=== PATIENT | female | born 1945 | race Caucasian/White ===

== ENCOUNTER → 2017-01-16 | Outpatient (CLI) | payer OTHER | END | disposition home or self-care (01) | LOC: MAMMO 14:00 | DX: Z12.31 Encounter for screening mammogram for malignant neoplasm of breast (principal) ==

== ENCOUNTER → 2017-04-03 | Outpatient (CLI) | payer OTHER ==
[2017-04-03 16:03] LABS: BASO # 0.1 10*3/uL (0.0-0.1); BASO % 0.5 % (0.0-1.0); EOS # 0.3 10*3/uL (0.0-0.4); EOS % 2.7 % (1.0-4.0); HEMATOCRIT 36.7 % (37.0-47.0); HEMOGLOBIN 11.3 g/dl (12.0-16.0); IG # 0.1 10*3/uL (0.0-0.1); LYMPH # 2.5 10*3/uL (1.3-4.4); LYMPH % 24.9 % (27.0-41.0); MEAN CELL VOLUME 91.1 fl (81.0-99.0); MEAN CORPUSCULAR HGB CONC 30.8 g/dl (33.0-37.0); MEAN PLATELET VOLUME 11.3 fl (9.6-12.3); MONO # 0.5 10*3/uL (0.1-1.0); MONO % 5.1 % (3.0-9.0); NEUT # 6.6 10*3/uL (2.3-7.9); NEUT % 66.2 % (47.0-73.0); PLATELET COUNT AUTOMATED 280 10*3/uL (130-400); RED BLOOD COUNT 4.03 10*6/uL (4.10-5.10); RED CELL DISTRI WIDTH 15.1 % (0-14.5); WHITE BLOOD COUNT 9.9 10*3/uL (4.8-10.8)
[2017-04-03 16:11] LABS: POTASSIUM 4.6 mmol/L (3.5-5.1)
[2017-04-03 16:19] LABS: HEMOGLOBIN A1c 6.7 % (4.8-5.6)
[2017-04-03 16:22] LABS: THYROID STIM HORMONE (HS) 12.5 uIU/ml (0.358-4.75)
[2017-04-04 09:07] LABS: MICRO ALBUMIN/CRE RATIO <2.2 (0.0-30.0)
== END | disposition home or self-care (01) ==
LOC: LAB 14:53
PROVIDERS: Family Medicine
DX: E03.9 Hypothyroidism, unspecified (principal); E78.00 Pure hypercholesterolemia, unspecified; D64.9 Anemia, unspecified; E11.9 Type 2 diabetes mellitus without complications

== ENCOUNTER → 2019-09-10 | Outpatient (CLI) | payer OTHER ==
[2019-09-10 14:05] LABS: BASO # 0.1 10*3/uL (0.0-0.1); BASO % 0.7 % (0.0-1.0); EOS # 0.3 10*3/uL (0.0-0.4); EOS % 3.1 % (1.0-4.0); HEMATOCRIT 36.7 % (37.0-47.0); HEMOGLOBIN 11.6 g/dl (12.0-16.0); LYMPH # 3.3 10*3/uL (1.3-4.4); LYMPH % 33.8 % (27.0-41.0); MEAN CELL VOLUME 95.8 fl (81.0-99.0); MEAN CORPUSCULAR HGB 30.3 pg (27.0-31.0); MEAN CORPUSCULAR HGB CONC 31.6 g/dl (33.0-37.0); MEAN PLATELET VOLUME 11.2 fl (9.6-12.3); MONO # 0.6 10*3/uL (0.1-1.0); MONO % 5.9 % (3.0-9.0); NEUT # 5.5 10*3/uL (2.3-7.9); NEUT % 55.9 % (47.0-73.0); PLATELET COUNT AUTOMATED 277 10*3/uL (130-400); RED BLOOD COUNT 3.83 10*6/uL (4.10-5.10); RED CELL DISTRI WIDTH 13.3 % (0-14.5); WHITE BLOOD COUNT 9.9 10*3/uL (4.8-10.8)
[2019-09-10 14:22] LABS: ALBUMIN 3.2 gm/dl (3.1-4.5); CREATININE 1.3 mg/dL (0.55-1.02); POTASSIUM 4.2 mmol/L (3.5-5.1); TOTAL PROTEIN 8.6 gm/dL (6.4-8.2)
[2019-09-10 14:36] LABS: THYROID STIM HORMONE (HS) 0.625 uIU/ml (0.358-4.75)
== END | disposition home or self-care (01) ==
LOC: LAB 13:32
PROVIDERS: Family Medicine
DX: E11.9 Type 2 diabetes mellitus without complications (principal); E78.2 Mixed hyperlipidemia; E03.9 Hypothyroidism, unspecified; R42 Dizziness and giddiness

== ENCOUNTER → 2019-12-10 | Outpatient (CLI) | payer OTHER | END | disposition home or self-care (01) | LOC: RAD 15:47 | DX: J44.9 Chronic obstructive pulmonary disease, unspecified (principal) ==

== ENCOUNTER 2019-12-18 23:55 | Emergency (ER) | payer OTHER | END 2019-12-18 23:59 | disposition left against medical advice (07) | LOC: ED 23:55 | DX: R07.9 Chest pain, unspecified (principal); Z53.21 Procedure and treatment not carried out due to patient leaving prior to being seen by health care provider ==

== ENCOUNTER → 2020-06-29 | Outpatient (CLI) | payer OTHER ==
[2020-06-29 15:03] LABS: BASO # 0.1 10*3/uL (0.0-0.1); BASO % 0.4 % (0.0-1.0); EOS # 0.4 10*3/uL (0.0-0.4); EOS % 3.8 % (1.0-4.0); LYMPH # 4.4 10*3/uL (1.3-4.4); LYMPH % 38.2 % (27.0-41.0); MEAN CORPUSCULAR HGB 28.9 pg (27.0-31.0); MEAN CORPUSCULAR HGB CONC 30.8 g/dl (33.0-37.0); MEAN PLATELET VOLUME 10.9 fl (9.6-12.3); MONO # 0.7 10*3/uL (0.1-1.0); MONO % 6.5 % (3.0-9.0); NEUT # 5.8 10*3/uL (2.3-7.9); NEUT % 50.8 % (47.0-73.0); PLATELET COUNT AUTOMATED 265 10*3/uL (130-400); RED BLOOD COUNT 4.15 10*6/uL (4.10-5.10); RED CELL DISTRI WIDTH 13.9 % (0-14.5); WHITE BLOOD COUNT 11.4 10*3/uL (4.8-10.8)
[2020-06-29 15:37] LABS: CREATININE 1.23 mg/dL (0.55-1.02); POTASSIUM 4.1 mmol/L (3.5-5.1)
[2020-06-29 15:43] LABS: THYROID STIM HORMONE (HS) 0.46 uIU/ml (0.358-4.75)
== END | disposition home or self-care (01) ==
LOC: LAB 14:46
PROVIDERS: ATTEND Family Medicine
DX: D50.0 Iron deficiency anemia secondary to blood loss (chronic) (principal); E11.9 Type 2 diabetes mellitus without complications; E03.9 Hypothyroidism, unspecified; E78.2 Mixed hyperlipidemia

== ENCOUNTER → 2021-05-04 | Outpatient (CLI) | payer OTHER ==
[2021-05-04 14:25] LABS: CREATININE 1.26 mg/dL (0.55-1.02); POTASSIUM 4.1 mmol/L (3.5-5.1)
[2021-05-04 14:35] LABS: THYROID STIM HORMONE (HS) 28.8 uIU/ml (0.358-4.75)
== END | disposition home or self-care (01) ==
LOC: LAB 13:19
PROVIDERS: ATTEND Family Medicine
DX: I10 Essential (primary) hypertension (principal); E11.9 Type 2 diabetes mellitus without complications

== ENCOUNTER → 2021-07-07 | Outpatient (CLI) | payer OTHER ==
[2021-07-07 15:49] LABS: BASO # 0.1 10*3/uL (0.0-0.1); BASO % 0.5 % (0.0-1.0); EOS # 0.2 10*3/uL (0.0-0.4); EOS % 2.3 % (1.0-4.0); HEMATOCRIT 39.3 % (37.0-47.0); LYMPH # 3.8 10*3/uL (1.3-4.4); LYMPH % 41.9 % (27.0-41.0); MEAN CORPUSCULAR HGB 30.5 pg (27.0-31.0); MEAN CORPUSCULAR HGB CONC 30.8 g/dl (33.0-37.0); MEAN PLATELET VOLUME 11.1 fl (9.6-12.3); MONO # 0.6 10*3/uL (0.1-1.0); MONO % 6.7 % (3.0-9.0); NEUT # 4.4 10*3/uL (2.3-7.9); NEUT % 48.2 % (47.0-73.0); PLATELET COUNT AUTOMATED 236 10*3/uL (130-400); RED BLOOD COUNT 3.97 10*6/uL (4.10-5.10); RED CELL DISTRI WIDTH 13.4 % (0-14.5); WHITE BLOOD COUNT 9.1 10*3/uL (4.8-10.8)
== END | disposition home or self-care (01) ==
LOC: LAB 15:25
PROVIDERS: ATTEND Family Medicine
DX: E03.9 Hypothyroidism, unspecified (principal); R53.81 Other malaise

== ENCOUNTER → 2022-03-30 | Outpatient (CLI) | payer OTHER ==
[2022-03-30 15:23] LABS: CREATININE 1.24 mg/dL (0.55-1.02); POTASSIUM 4.2 mmol/L (3.5-5.1)
[2022-03-30 15:28] LABS: THYROID STIM HORMONE (HS) 2.35 uIU/ml (0.358-4.75)
== END | disposition home or self-care (01) ==
LOC: LAB 14:24
PROVIDERS: ATTEND Family Medicine
DX: E11.9 Type 2 diabetes mellitus without complications (principal); I10 Essential (primary) hypertension

== ENCOUNTER → 2023-02-22 | Outpatient (CLI) | payer OTHER ==
[2023-02-22 16:23] LABS: BASO # 0.1 10*3/uL (0.0-0.1); BASO % 0.5 % (0.0-1.0); EOS # 0.3 10*3/uL (0.0-0.4); EOS % 3.3 % (1.0-4.0); LYMPH # 3.3 10*3/uL (1.3-4.4); LYMPH % 33.5 % (27.0-41.0); MEAN CELL VOLUME 97.4 fl (81.0-99.0); MEAN CORPUSCULAR HGB 30.3 pg (27.0-31.0); MEAN CORPUSCULAR HGB CONC 31.1 g/dl (33.0-37.0); MEAN PLATELET VOLUME 10.9 fl (9.6-12.3); MONO # 0.6 10*3/uL (0.1-1.0); MONO % 6.5 % (3.0-9.0); NEUT # 5.5 10*3/uL (2.3-7.9); NEUT % 55.9 % (47.0-73.0); PLATELET COUNT AUTOMATED 240 10*3/uL (130-400); RED CELL DISTRI WIDTH 13.5 % (0-14.5); WHITE BLOOD COUNT 9.8 10*3/uL (4.8-10.8)
[2023-02-22 17:08] LABS: ALKALINE PHOSPHATASE 71 U/L (46-116); BUN 16 mg/dl (9-23); CHLORIDE 104 mmol/L (98-107); CHOLESTEROL 96 mg/dL (<200); LDL CHOLESTEROL 39 mg/dL (9-159); POTASSIUM 4.4 mmol/L (3.4-5.1); THYROID STIM HORMONE (HS) 3.786 uIU/ml (0.550-4.780); TOTAL PROTEIN 8.1 gm/dL (6.0-8.0); TRIGLYCERIDES 93 mg/dl (<150)
[2023-02-22 17:13] LABS: SGPT/ALT < 7 U/L (10-49)
== END | disposition home or self-care (01) ==
LOC: LAB 15:50
PROVIDERS: ATTEND Family Medicine
DX: E11.9 Type 2 diabetes mellitus without complications (principal); E78.2 Mixed hyperlipidemia; E03.9 Hypothyroidism, unspecified; K74.69 Other cirrhosis of liver

== ENCOUNTER 2023-08-02 01:10 | Inpatient (IN) | payer OTHER ==
[2023-08-02] VITALS (13 sets, daily range): BP systolic 105–155; BP diastolic 42–64
[~2023-08-02] VITALS: Ht 162.6 cm; Wt 99.5 kg
[2023-08-02 01:53] LABS: BASO # 0.1 10*3/uL (0.0-0.1); BASO % 0.3 % (0.0-1.0); EOS % 0.2 % (1.0-4.0); HEMATOCRIT 38.7 % (37.0-47.0); LYMPH % 11.2 % (27.0-41.0); MEAN CORPUSCULAR HGB 30.1 pg (27.0-31.0); MONO # 1.3 10*3/uL (0.1-1.0); MONO % 7.2 % (3.0-9.0); NEUT # 14.4 10*3/uL (2.3-7.9); NEUT % 80.3 % (47.0-73.0); PLATELET COUNT AUTOMATED 218 10*3/uL (130-400); RED BLOOD COUNT 3.99 10*6/uL (4.10-5.10); RED CELL DISTRI WIDTH 13.5 % (0-14.5)
[2023-08-02 02:05] LABS: ACT PARTIAL THROMBO TIME 21.1 SECONDS (20.0-32.1); INTERNATIONAL NORM RATIO 0.9 (2.0-3.5)
[2023-08-02 02:15] LABS: POTASSIUM 4.7 mmol/L (3.4-5.1); TOTAL PROTEIN 8.1 gm/dL (6.0-8.0)
[2023-08-02] MEDS ORDERED: PERCOCET 7.5-31 EACH PO (02:56)
[2023-08-02] MEDS ORDERED: ROSUVASTATIN CA10 MG PO (02:57)
[2023-08-02] MEDS ORDERED: XANAX0.5 MG PO (02:58)
[2023-08-02] MEDS ORDERED: SYMB160 INH (02:58)
[2023-08-02] MEDS ORDERED: LEVOTHYROXINE175 MCG PO (02:58)
[2023-08-02 04:00] LABS: BILIRUBIN Negative (Negative); BLOOD Trace-Intact (Negative); CLARITY Clear (Clear); COLOR Yellow (Yellow); GLUCOSE Negative (Negative); KETONE Trace (Negative); LEUKO ESTERASE Trace (Negative); NITRITE Positive (Negative); UROBILINOGEN 0.2 E.U./dl (0.0-1.0)
[2023-08-02 04:20] LABS: BACTERIA 2+; EPITHELIAL CELLS 16-20
[2023-08-02 14:21] LABS: ABG BASE EXCESS -2.8 mmol/L (-2.0-2.0); ARTERIAL BLOOD GAS PH 7.323 (7.35-7.45); ARTERIAL BLOOD GAS PO2 64.5 (80-90)
[2023-08-02] MEDS ORDERED: COQ-10100 MG PO (14:56)
[2023-08-02] MEDS ORDERED: TUMERIC PO (14:57)
[2023-08-02 16:04] LABS: BASO % 0.2 % (0.0-1.0); EOS % 0.1 % (1.0-4.0); HEMATOCRIT 34.4 % (37.0-47.0); LYMPH # 1.5 10*3/uL (1.3-4.4); LYMPH % 9.5 % (27.0-41.0); MEAN CELL VOLUME 96.6 fl (81.0-99.0); MEAN CORPUSCULAR HGB 30.9 pg (27.0-31.0); MONO # 0.8 10*3/uL (0.1-1.0); MONO % 5.4 % (3.0-9.0); NEUT # 13.2 10*3/uL (2.3-7.9); NEUT % 84.3 % (47.0-73.0); PLATELET COUNT AUTOMATED 180 10*3/uL (130-400); RED BLOOD COUNT 3.56 10*6/uL (4.10-5.10); RED CELL DISTRI WIDTH 13.6 % (0-14.5); WHITE BLOOD COUNT 15.6 10*3/uL (4.8-10.8)
[2023-08-02 16:27] LABS: POTASSIUM 5.2 mmol/L (3.4-5.1); TOTAL PROTEIN 7.3 gm/dL (6.0-8.0)
[2023-08-03] VITALS: BP 106/41
[2023-08-03 04:00] VITALS: BP 111/48
[2023-08-03 06:41] LABS: BASO % 0.2 % (0.0-1.0); EOS # 0.1 10*3/uL (0.0-0.4); EOS % 0.8 % (1.0-4.0); HEMATOCRIT 31.4 % (37.0-47.0); LYMPH # 2.3 10*3/uL (1.3-4.4); LYMPH % 18.9 % (27.0-41.0); MEAN CORPUSCULAR HGB 31.1 pg (27.0-31.0); MEAN CORPUSCULAR HGB CONC 31.2 g/dl (33.0-37.0); MEAN PLATELET VOLUME 11.3 fl (9.6-12.3); MONO # 0.7 10*3/uL (0.1-1.0); MONO % 5.6 % (3.0-9.0); NEUT % 73.8 % (47.0-73.0); PLATELET COUNT AUTOMATED 157 10*3/uL (130-400); RED BLOOD COUNT 3.15 10*6/uL (4.10-5.10); RED CELL DISTRI WIDTH 13.8 % (0-14.5); WHITE BLOOD COUNT 12.2 10*3/uL (4.8-10.8)
[2023-08-03 06:53] LABS: MEAN CELL VOLUME 99.7 fl (81.0-99.0)
[2023-08-03 07:04] LABS: POTASSIUM 4.7 mmol/L (3.4-5.1); TOTAL PROTEIN 7.1 gm/dL (6.0-8.0)
[2023-08-03 08:00] VITALS: BP 105/53
[2023-08-03 12:00] VITALS: BP 102/40
[2023-08-03 16:00] VITALS: BP 117/51
[2023-08-03 20:00] VITALS: BP 110/50
[2023-08-04] VITALS: BP 122/44
[2023-08-04 07:09] LABS: POTASSIUM 4.7 mmol/L (3.4-5.1); TOTAL PROTEIN 7.1 gm/dL (6.0-8.0)
[2023-08-04 07:40] LABS: BASO % 0.4 % (0.0-1.0); EOS # 0.1 10*3/uL (0.0-0.4); EOS % 1.1 % (1.0-4.0); HEMATOCRIT 28.3 % (37.0-47.0); LYMPH # 1.8 10*3/uL (1.3-4.4); LYMPH % 16.5 % (27.0-41.0); MEAN CELL VOLUME 97.6 fl (81.0-99.0); MEAN CORPUSCULAR HGB CONC 31.8 g/dl (33.0-37.0); MEAN PLATELET VOLUME 11.2 fl (9.6-12.3); MONO # 0.6 10*3/uL (0.1-1.0); NEUT % 75.2 % (47.0-73.0); PLATELET COUNT AUTOMATED 146 10*3/uL (130-400); RED CELL DISTRI WIDTH 13.4 % (0-14.5); WHITE BLOOD COUNT 10.7 10*3/uL (4.8-10.8)
[2023-08-04 08:00] VITALS: BP 118/54
[2023-08-04 12:00] VITALS: BP 109/52
[2023-08-04 16:00] VITALS: BP 108/60
[2023-08-04 20:00] VITALS: BP 106/52
[2023-08-05] VITALS: BP 145/69
[2023-08-05 06:51] LABS: BASO % 0.2 % (0.0-1.0); EOS # 0.3 10*3/uL (0.0-0.4); EOS % 2.2 % (1.0-4.0); HEMATOCRIT 27.3 % (37.0-47.0); LYMPH # 1.8 10*3/uL (1.3-4.4); MEAN CELL VOLUME 96.8 fl (81.0-99.0); MEAN CORPUSCULAR HGB 30.9 pg (27.0-31.0); MEAN CORPUSCULAR HGB CONC 31.9 g/dl (33.0-37.0); MEAN PLATELET VOLUME 11.3 fl (9.6-12.3); MONO # 0.8 10*3/uL (0.1-1.0); MONO % 6.7 % (3.0-9.0); NEUT # 8.4 10*3/uL (2.3-7.9); NEUT % 74.2 % (47.0-73.0); PLATELET COUNT AUTOMATED 171 10*3/uL (130-400); RED BLOOD COUNT 2.82 10*6/uL (4.10-5.10); RED CELL DISTRI WIDTH 13.3 % (0-14.5); WHITE BLOOD COUNT 11.3 10*3/uL (4.8-10.8)
[2023-08-05 07:11] LABS: BUN 24 mg/dl (9-23); CHLORIDE 101 mmol/L (98-107); POTASSIUM 4.5 mmol/L (3.4-5.1)
[2023-08-05 08:00] VITALS: BP 140/75
[2023-08-05 12:00] VITALS: BP 120/57
[2023-08-05 16:00] VITALS: BP 119/48
[2023-08-05 20:00] VITALS: BP 114/57
[2023-08-06] VITALS: BP 132/54
[2023-08-06 05:33] LABS: BUN 24 mg/dl (9-23); CHLORIDE 101 mmol/L (98-107); POTASSIUM 4.3 mmol/L (3.4-5.1)
[2023-08-06 06:27] LABS: BASO % 0.4 % (0.0-1.0); EOS # 0.4 10*3/uL (0.0-0.4); HEMATOCRIT 27.8 % (37.0-47.0); LYMPH % 20.9 % (27.0-41.0); MEAN CELL VOLUME 98.2 fl (81.0-99.0); MEAN CORPUSCULAR HGB 31.4 pg (27.0-31.0); MEAN PLATELET VOLUME 11.9 fl (9.6-12.3); MONO # 0.9 10*3/uL (0.1-1.0); MONO % 8.9 % (3.0-9.0); NEUT # 6.2 10*3/uL (2.3-7.9); NEUT % 65.1 % (47.0-73.0); PLATELET COUNT AUTOMATED 208 10*3/uL (130-400); RED BLOOD COUNT 2.83 10*6/uL (4.10-5.10); RED CELL DISTRI WIDTH 13.4 % (0-14.5); WHITE BLOOD COUNT 9.5 10*3/uL (4.8-10.8)
[2023-08-06 08:00] VITALS: BP 126/48
[2023-08-06 12:00] VITALS: BP 128/46
[2023-08-06 16:00] VITALS: BP 110/51
[2023-08-06 20:00] VITALS: BP 132/59
[2023-08-07] VITALS: BP 126/60
[2023-08-07 06:16] LABS: BUN 22 mg/dl (9-23); CHLORIDE 101 mmol/L (98-107); POTASSIUM 3.6 mmol/L (3.4-5.1)
[2023-08-07 06:20] LABS: BASO # 0.1 10*3/uL (0.0-0.1); BASO % 0.7 % (0.0-1.0); EOS # 0.5 10*3/uL (0.0-0.4); HEMATOCRIT 25.2 % (37.0-47.0); LYMPH # 2.6 10*3/uL (1.3-4.4); LYMPH % 28.5 % (27.0-41.0); MEAN CELL VOLUME 98.8 fl (81.0-99.0); MEAN CORPUSCULAR HGB 30.6 pg (27.0-31.0); MEAN PLATELET VOLUME 11.5 fl (9.6-12.3); MONO # 0.8 10*3/uL (0.1-1.0); MONO % 8.9 % (3.0-9.0); NEUT # 4.9 10*3/uL (2.3-7.9); NEUT % 55.3 % (47.0-73.0); NUCLEATED RED BLOOD CELL 0.4 % (0.0-0.0); PLATELET COUNT AUTOMATED 203 10*3/uL (130-400); RED BLOOD COUNT 2.55 10*6/uL (4.10-5.10); RED CELL DISTRI WIDTH 13.8 % (0-14.5); WHITE BLOOD COUNT 8.9 10*3/uL (4.8-10.8)
[2023-08-07 08:00] VITALS: BP 131/62
[2023-08-07 12:00] VITALS: BP 112/62
[2023-08-07 15:43] VITALS: BP 134/52
[2023-08-07 20:00] VITALS: BP 124/63
[2023-08-08] VITALS: BP 123/45
[2023-08-08 07:02] LABS: BASO # 0.1 10*3/uL (0.0-0.1); BASO % 0.6 % (0.0-1.0); EOS # 0.4 10*3/uL (0.0-0.4); EOS % 4.1 % (1.0-4.0); HEMATOCRIT 25.4 % (37.0-47.0); LYMPH # 2.5 10*3/uL (1.3-4.4); LYMPH % 26.8 % (27.0-41.0); MEAN CELL VOLUME 98.1 fl (81.0-99.0); MEAN CORPUSCULAR HGB 30.9 pg (27.0-31.0); MEAN CORPUSCULAR HGB CONC 31.5 g/dl (33.0-37.0); MONO # 0.7 10*3/uL (0.1-1.0); MONO % 7.7 % (3.0-9.0); NEUT # 5.5 10*3/uL (2.3-7.9); NEUT % 57.9 % (47.0-73.0); NUCLEATED RED BLOOD CELL 0.1 10*3/uL (0.0-0.0); NUCLEATED RED BLOOD CELL 0.8 % (0.0-0.0); PLATELET COUNT AUTOMATED 249 10*3/uL (130-400); RED BLOOD COUNT 2.59 10*6/uL (4.10-5.10); RED CELL DISTRI WIDTH 13.8 % (0-14.5); WHITE BLOOD COUNT 9.5 10*3/uL (4.8-10.8)
[2023-08-08 08:00] VITALS: BP 127/54
[2023-08-08] MEDS ORDERED: VENTOLIN 02.5 MG/3 M NEB (10:56)
[2023-08-08] MEDS ORDERED: VITAMIN D350 MCG PO (10:56)
[2023-08-08] MEDS ORDERED: PERCOCET 7.5-31 EACH PO (10:56)
[2023-08-08] MEDS ORDERED: ASPIRIN ADULT L81 M2 PO (10:56)
[2023-08-08] MEDS ORDERED: XANAX0.5 MG PO (10:56)
[2023-08-08 12:00] VITALS: BP 128/57
== END 2023-08-08 14:44 | DRG 853 ==
LOC: ED 01:10 → EDHOLD 04:33 → ICCU 04:33 → 4E 04:33 → EDHOLD 04:52 → ICCU 14:06 → 4E 08-06 11:00
PROVIDERS: Family Medicine; Internal Medicine; Orthopaedic Surgery; Registered Nurse; Student in an Organized Health Care Education/Training Program; ADMIT Student in an Organized Health Care Education/Training Program; ATTEND Student in an Organized Health Care Education/Training Program
PROC: 0QH634Z Insertion of Internal Fixation Device into Right Upper Femur, Percutaneous Approach (ICD-10-PCS; principal; 2023-08-02)
PROC: 3E0T3BZ Introduction of Anesthetic Agent into Peripheral Nerves and Plexi, Percutaneous Approach (ICD-10-PCS; 2023-08-02)
PROC: 5A09357 Assistance with Respiratory Ventilation, Less than 24 Consecutive Hours, Continuous Positive Airway Pressure (ICD-10-PCS; 2023-08-02)
PROC: 5A09457 Assistance with Respiratory Ventilation, 24-96 Consecutive Hours, Continuous Positive Airway Pressure (ICD-10-PCS; 2023-08-02)
DX: A41.9 Sepsis, unspecified organism (principal); J96.01 Acute respiratory failure with hypoxia; S72.141A Displaced intertrochanteric fracture of right femur, initial encounter for closed fracture; E87.20 Acidosis, unspecified; N39.0 Urinary tract infection, site not specified; E44.0 Moderate protein-calorie malnutrition; R65.20 Severe sepsis without septic shock; F41.9 Anxiety disorder, unspecified; N18.9 Chronic kidney disease, unspecified; E78.5 Hyperlipidemia, unspecified; E03.9 Hypothyroidism, unspecified; R73.9 Hyperglycemia, unspecified; J44.9 Chronic obstructive pulmonary disease, unspecified; K76.0 Fatty (change of) liver, not elsewhere classified; Z90.710 Acquired absence of both cervix and uterus; Z90.49 Acquired absence of other specified parts of digestive tract; Z98.51 Tubal ligation status; Z82.49 Family history of ischemic heart disease and other diseases of the circulatory system; Z82.3 Family history of stroke; W18.39XA Other fall on same level, initial encounter; Y93.89 Activity, other specified; Y92.89 Other specified places as the place of occurrence of the external cause; Y99.8 Other external cause status; Z68.37 Body mass index [BMI] 37.0-37.9, adult

== ENCOUNTER → 2023-08-31 | Outpatient (CLI) | payer OTHER ==
[~2023-08-31] MED LIST: ASPIRIN ADULT L81 M2 PO; COQ-10100 MG PO; LEVOTHYROXINE175 MCG PO; PERCOCET 7.5-31 EACH PO; ROSUVASTATIN CA10 MG PO; SYMB160 INH; TUMERIC PO; VENTOLIN 02.5 MG/3 M NEB; VITAMIN D350 MCG PO; XANAX0.5 MG PO
== END | disposition home or self-care (01) ==
LOC: ORTHO 00:45
PROVIDERS: ATTEND Orthopaedic Surgery
DX: S72.141D Displaced intertrochanteric fracture of right femur, subsequent encounter for closed fracture with routine healing (principal); X58.XXXD Exposure to other specified factors, subsequent encounter

== ENCOUNTER 2024-01-04 04:20 | Emergency (ER) | payer OTHER ==
[~2024-01-04] VITALS: Ht 165.1 cm; Wt 96.2 kg
[2024-01-04] MEDS ORDERED: IOHEXOL 300 MG/ML 100 ML VIAL IV ONE (04:50)
[2024-01-04 05:21] LABS: BUN 15 mg/dl (9-23); CHLORIDE 105 mmol/L (98-107); LIPASE 34 U/L (12-53); POTASSIUM 4.7 mmol/L (3.4-5.1)
[2024-01-04 05:58] LABS: BASO % 0.4 % (0.0-1.0); EOS # 0.3 10*3/uL (0.0-0.4); EOS % 2.9 % (1.0-4.0); HEMATOCRIT 34.2 % (37.0-47.0); LYMPH # 3.3 10*3/uL (1.3-4.4); LYMPH % 32.1 % (27.0-41.0); MEAN CELL VOLUME 98.3 fl (81.0-99.0); MEAN CORPUSCULAR HGB 29.3 pg (27.0-31.0); MEAN CORPUSCULAR HGB CONC 29.8 g/dl (33.0-37.0); MEAN PLATELET VOLUME 11.6 fl (9.6-12.3); MONO # 0.6 10*3/uL (0.1-1.0); MONO % 5.4 % (3.0-9.0); PLATELET COUNT AUTOMATED 196 10*3/uL (130-400); RED BLOOD COUNT 3.48 10*6/uL (4.10-5.10); RED CELL DISTRI WIDTH 16.6 % (0-14.5); WHITE BLOOD COUNT 10.3 10*3/uL (4.8-10.8)
[2024-01-04] MEDS ORDERED: SODIUM CHLORIDE 0.9% 1,000 ML IV ONE (06:25)
[2024-01-04] MEDS ORDERED: Acetaminophen/Oxycodone 5 MG/325 MG TABLET PO ONE (07:45)
[2024-01-04] MEDS ORDERED: Ondansetron Hydrochloride 4 MG/2 ML VIAL IV ONE (07:45)
[2024-01-04 08:21] LABS: BILIRUBIN Negative (Negative); BLOOD Negative (Negative); CLARITY Clear (Clear); COLOR Yellow (Yellow); GLUCOSE Negative (Negative); KETONE Negative (Negative); LEUKO ESTERASE 2+ (Negative); NITRITE Positive (Negative); PH 6.5 (4.5-8.0); SPECIFIC GRAVITY 1.025 (1.001-1.030); UROBILINOGEN 0.2 E.U./dl (0.0-1.0)
[2024-01-04 08:31] LABS: BACTERIA 4+; EPITHELIAL CELLS 0-2; WBC 41-50 wbc/hpf (0-5)
[2024-01-04] MEDS ORDERED: Ceftriaxone Sodium 1 GM/10 ML SYR IV ONE (08:35)
[2024-01-04] MEDS ORDERED: COLACE 2-IN-11 EACH PO (08:50)
[2024-01-04] MEDS ORDERED: PEPCID20 MG PO (08:50)
[2024-01-04] MEDS ORDERED: SEPTDS PO (08:50)
== END 2024-01-04 08:53 | disposition home or self-care (01) ==
LOC: ED 04:20
PROVIDERS: Internal Medicine
DX: K21.9 Gastro-esophageal reflux disease without esophagitis (principal); K44.9 Diaphragmatic hernia without obstruction or gangrene; N39.0 Urinary tract infection, site not specified; R11.0 Nausea; E11.9 Type 2 diabetes mellitus without complications; J44.9 Chronic obstructive pulmonary disease, unspecified; E03.9 Hypothyroidism, unspecified; Z88.8 Allergy status to other drugs, medicaments and biological substances; Z90.710 Acquired absence of both cervix and uterus; Z90.49 Acquired absence of other specified parts of digestive tract; Z98.51 Tubal ligation status; Z98.890 Other specified postprocedural states

== ENCOUNTER 2024-05-17 04:19 | Emergency (ER) | payer OTHER ==
[~2024-05-17] VITALS: Ht 165.1 cm; Wt 99.8 kg
[~2024-05-17 04:19] MED LIST changes: +COLACE 2-IN-11 EACH PO; +PEPCID20 MG PO; +SEPTDS PO
[2024-05-17] MEDS ORDERED: ACETAMINOPHEN 325 MG TAB PO ONE (05:20)
[2024-05-17] MEDS ORDERED: PREDNISONE50 MG PO (06:14)
[2024-05-17] MEDS ORDERED: Dexamethasone Sodium Phospha 20 MG/5 ML VIAL IM ONE (06:15)
== END 2024-05-17 06:32 | disposition home or self-care (01) ==
LOC: ED 04:19
DX: M79.652 Pain in left thigh (principal); F41.9 Anxiety disorder, unspecified; E11.9 Type 2 diabetes mellitus without complications; E03.9 Hypothyroidism, unspecified; J44.9 Chronic obstructive pulmonary disease, unspecified; Z88.8 Allergy status to other drugs, medicaments and biological substances; Z98.51 Tubal ligation status; Z95.5 Presence of coronary angioplasty implant and graft; Z90.49 Acquired absence of other specified parts of digestive tract; Z90.710 Acquired absence of both cervix and uterus

== ENCOUNTER 2024-06-06 11:05 | Emergency (ER) | payer OTHER ==
[~2024-06-06] VITALS: Wt 93.9 kg
[~2024-06-06 11:05] MED LIST changes: +PREDNISONE50 MG PO
[2024-06-06] MEDS ORDERED: ACETAMINOPHEN 325 MG TAB PO ONE (12:50)
[2024-06-06] MEDS ORDERED: OXYCODONE HCL (IR) 5 MG TAB PO ONE (12:55)
[2024-06-06 13:09] LABS: BASO % 0.4 % (0.0-1.0); EOS # 0.2 10*3/uL (0.0-0.4); EOS % 2.5 % (1.0-4.0); HEMATOCRIT 35.6 % (37.0-47.0); LYMPH # 2.6 10*3/uL (1.3-4.4); LYMPH % 33.3 % (27.0-41.0); MEAN CORPUSCULAR HGB 30.7 pg (27.0-31.0); MEAN PLATELET VOLUME 10.2 fl (9.6-12.3); MONO # 0.5 10*3/uL (0.1-1.0); MONO % 5.8 % (3.0-9.0); NEUT # 4.5 10*3/uL (2.3-7.9); NEUT % 57.6 % (47.0-73.0); PLATELET COUNT AUTOMATED 219 10*3/uL (130-400); RED BLOOD COUNT 3.71 10*6/uL (4.10-5.10); RED CELL DISTRI WIDTH 15.1 % (0-14.5); WHITE BLOOD COUNT 7.8 10*3/uL (4.8-10.8)
[2024-06-06 13:20] LABS: ACT PARTIAL THROMBO TIME 26.5 SECONDS (20.0-32.1)
[2024-06-06 13:43] LABS: ALKALINE PHOSPHATASE 87 U/L (46-116); BUN 10 mg/dl (9-23); CHLORIDE 104 mmol/L (98-107); POTASSIUM 4.2 mmol/L (3.4-5.1); SGPT/ALT < 7 U/L (5-49); TOTAL PROTEIN 7.8 gm/dL (6.0-8.0)
== END 2024-06-06 16:27 | disposition home or self-care (01) ==
LOC: ED 11:05
PROVIDERS: Emergency Medicine
DX: R60.0 Localized edema (principal); M79.652 Pain in left thigh; F41.9 Anxiety disorder, unspecified; J44.9 Chronic obstructive pulmonary disease, unspecified; K21.9 Gastro-esophageal reflux disease without esophagitis; E78.5 Hyperlipidemia, unspecified; E03.9 Hypothyroidism, unspecified; E11.22 Type 2 diabetes mellitus with diabetic chronic kidney disease; N18.6 End stage renal disease; Z88.8 Allergy status to other drugs, medicaments and biological substances; Z98.51 Tubal ligation status; Z95.5 Presence of coronary angioplasty implant and graft; Z90.49 Acquired absence of other specified parts of digestive tract; Z90.710 Acquired absence of both cervix and uterus

== ENCOUNTER → 2024-07-25 | Outpatient (CLI) | payer OTHER ==
[2024-07-25 16:23] LABS: BASO # 0.1 10*3/uL (0.0-0.1); BASO % 0.7 % (0.0-1.0); EOS # 0.2 10*3/uL (0.0-0.4); EOS % 2.4 % (1.0-4.0); HEMATOCRIT 39.5 % (37.0-47.0); LYMPH # 3.1 10*3/uL (1.3-4.4); LYMPH % 34.2 % (27.0-41.0); MEAN CELL VOLUME 100.8 fl (81.0-99.0); MEAN CORPUSCULAR HGB 30.6 pg (27.0-31.0); MEAN CORPUSCULAR HGB CONC 30.4 g/dl (33.0-37.0); MEAN PLATELET VOLUME 11.5 fl (9.6-12.3); MONO # 0.5 10*3/uL (0.1-1.0); MONO % 6.1 % (3.0-9.0); NEUT % 56.3 % (47.0-73.0); PLATELET COUNT AUTOMATED 259 10*3/uL (130-400); RED BLOOD COUNT 3.92 10*6/uL (4.10-5.10); RED CELL DISTRI WIDTH 15.1 % (0-14.5); WHITE BLOOD COUNT 8.9 10*3/uL (4.8-10.8)
[2024-07-25 16:49] LABS: ALKALINE PHOSPHATASE 83 U/L (46-116); BUN 17 mg/dl (9-23); CHLORIDE 105 mmol/L (98-107); CHOLESTEROL 154 mg/dL (<200); LDL CHOLESTEROL 75 mg/dL (9-159); POTASSIUM 4.7 mmol/L (3.4-5.1); T3 UPTAKE 30.9 % (22.4-36.7); THYROXINE (T4) TOTAL 9.6 ug/dl (4.5-10.9); TOTAL PROTEIN 8.3 gm/dL (6.0-8.0); TRIGLYCERIDES 226 mg/dl (<150); URIC ACID 5.8 mg/dL (3.1-7.8)
[2024-07-25 16:51] LABS: SGPT/ALT < 7 U/L (5-49)
[2024-07-26 10:07] LABS: ANTI-STREPTOLYSIN O AB 70.1 IU/mL (0.0-200.0)
== END | disposition home or self-care (01) ==
LOC: LAB 14:46
PROVIDERS: ATTEND Internal Medicine
DX: S70.02XA Contusion of left hip, initial encounter (principal); S70.12XA Contusion of left thigh, initial encounter; R53.83 Other fatigue; R06.00 Dyspnea, unspecified; R60.9 Edema, unspecified; M79.639 Pain in unspecified forearm; E78.5 Hyperlipidemia, unspecified; X58.XXXA Exposure to other specified factors, initial encounter; Y93.89 Activity, other specified; Y92.89 Other specified places as the place of occurrence of the external cause; Y99.8 Other external cause status

== ENCOUNTER 2024-09-29 03:32 | Emergency (ER) | payer OTHER ==
[~2024-09-29] VITALS: Ht 162.5 cm; Wt 90.3 kg
[2024-09-29 03:50] LABS: BASO % 0.3 % (0.0-1.0); EOS # 0.2 10*3/uL (0.0-0.4); EOS % 1.5 % (1.0-4.0); HEMATOCRIT 31.5 % (37.0-47.0); MEAN CELL VOLUME 102.6 fl (81.0-99.0); MEAN CORPUSCULAR HGB 30.6 pg (27.0-31.0); MEAN CORPUSCULAR HGB CONC 29.8 g/dl (33.0-37.0); MEAN PLATELET VOLUME 10.4 fl (9.6-12.3); MONO # 0.7 10*3/uL (0.1-1.0); MONO % 5.5 % (3.0-9.0); NEUT # 8.9 10*3/uL (2.3-7.9); NEUT % 75.1 % (47.0-73.0); PLATELET COUNT AUTOMATED 240 10*3/uL (130-400); RED BLOOD COUNT 3.07 10*6/uL (4.10-5.10); RED CELL DISTRI WIDTH 14.1 % (0-14.5); WHITE BLOOD COUNT 11.8 10*3/uL (4.8-10.8)
[2024-09-29] MEDS ORDERED: Meclizine Hydrochloride 25 MG TAB PO ONE (03:50)
[2024-09-29 04:11] LABS: ALKALINE PHOSPHATASE 86 U/L (46-116); BUN 22 mg/dl (9-23); CHLORIDE 104 mmol/L (98-107); POTASSIUM 5.1 mmol/L (3.4-5.1); SGPT/ALT 13 U/L (5-49); TOTAL PROTEIN 7.4 gm/dL (6.0-8.0)
[2024-09-29] MEDS ORDERED: ANTIVERT25 M2 PO (07:09)
[2024-09-29] MEDS ORDERED: Acetaminophen/Oxycodone 5 MG/325 MG TABLET PO ONE (07:10)
== END 2024-09-29 07:27 | disposition home or self-care (01) ==
LOC: ED 03:32
PROVIDERS: Internal Medicine
DX: R42 Dizziness and giddiness (principal); D63.1 Anemia in chronic kidney disease; E44.1 Mild protein-calorie malnutrition; J44.9 Chronic obstructive pulmonary disease, unspecified; R68.84 Jaw pain; E11.22 Type 2 diabetes mellitus with diabetic chronic kidney disease; N18.31 Chronic kidney disease, stage 3a; E03.9 Hypothyroidism, unspecified; Z68.1 Body mass index [BMI] 19.9 or less, adult; Z88.8 Allergy status to other drugs, medicaments and biological substances; Z90.49 Acquired absence of other specified parts of digestive tract; Z90.710 Acquired absence of both cervix and uterus; Z95.5 Presence of coronary angioplasty implant and graft

== ENCOUNTER → 2025-07-16 | Outpatient (CLI) | payer OTHER ==
[~2025-07-16] MED LIST changes: +ANTIVERT25 M2 PO
[2025-07-16 15:03] LABS: BASO # 0.1 10*3/uL (0.0-0.1); BASO % 0.7 % (0.0-1.0); EOS # 0.4 10*3/uL (0.0-0.4); EOS % 4.1 % (1.0-4.0); MEAN CELL VOLUME 96.1 fl (81.0-99.0); MEAN CORPUSCULAR HGB 29.1 pg (27.0-31.0); MEAN PLATELET VOLUME 11.3 fl (9.6-12.3); MONO # 0.6 10*3/uL (0.1-1.0); MONO % 6.5 % (3.0-9.0); NEUT # 5.5 10*3/uL (2.3-7.9); NEUT % 57.6 % (47.0-73.0); NUCLEATED RED BLOOD CELL 0.0 % (0.0-0.0); NUCLEATED RED BLOOD CELL 0.0 10*3/uL (0.0-0.0); PLATELET COUNT AUTOMATED 235 10*3/uL (130-400); RED CELL DISTRI WIDTH 14.2 % (0-14.5)
[2025-07-16 15:29] LABS: BUN 22 mg/dl (9-23)
[2025-07-16 15:33] LABS: SGPT/ALT < 7 U/L (5-49)
[2025-07-16 15:43] LABS: VITAMIN D, 25-HYDROXY 18.0 ng/mL (30-100)
[2025-07-16 15:49] LABS: FREE T4 1.44 ng/dl (0.89-1.76)
[2025-07-17 13:07] LABS: ANTI-DSDNA ANTIBODIES 4 IU/mL (0-9); ANTI-RNP ANTIBODIES 0.3 AI (0.0-0.9); ANTICHROMATIN ANTIBODIES <0.2 AI (0.0-0.9); ANTISCLERODERMA-70 AB <0.2 AI (0.0-0.9)
== END | disposition home or self-care (01) ==
LOC: LAB 14:30
PROVIDERS: ATTEND Family Medicine
DX: R76.8 Other specified abnormal immunological findings in serum (principal); R53.83 Other fatigue; Z79.899 Other long term (current) drug therapy; E55.9 Vitamin D deficiency, unspecified